=== PATIENT | female | born 1990 | race Caucasian/White ===

== ENCOUNTER 2025-09-10 14:27 | Emergency (ER) | payer MEDICAID ==
[~2025-09-10] VITALS: Ht 162.6 cm; Wt 80.0 kg
[2025-09-10 14:31] VITALS: O2SAT 96
[2025-09-10 16:19] VITALS: BP 131/53; PULSE 84; RESP 18; TEMP 37.3; O2SAT 97
== END 2025-09-10 16:50 | disposition home or self-care (01) ==
LOC: ER 14:27
DX: F14.90 Cocaine use, unspecified, uncomplicated (principal); E11.9 Type 2 diabetes mellitus without complications; I10 Essential (primary) hypertension
CPT/HCPCS: 99283